=== PATIENT | male | born 1985 | race Caucasian/White ===

== ENCOUNTER 2023-03-13 14:34 | Outpatient (CLI) | payer OTHER, SELFPAY | END 2023-03-13 14:35 | disposition home or self-care (01) | PROVIDERS: PCP Family Medicine; Visit Provider Family Medicine | DX: Z00.00 Encounter for general adult medical examination without abnormal findings (principal); I10 Essential (primary) hypertension; M10.9 Gout, unspecified | CPT/HCPCS: 80048; 80061; 84550 ==

== ENCOUNTER 2023-09-11 16:54 | Outpatient (CLI) | payer OTHER, SELFPAY | END 2023-09-11 16:55 | disposition home or self-care (01) | LOC: FBOREF 16:57 | PROVIDERS: PCP Family Medicine; Visit Provider Family Medicine | DX: I10 Essential (primary) hypertension (principal) | CPT/HCPCS: 80048 ==

== ENCOUNTER 2024-10-08 16:17 | Outpatient (CLI) | payer OTHER, SELFPAY | END 2024-10-08 16:18 | disposition home or self-care (01) | PROVIDERS: PCP Family Medicine; Visit Provider Family Medicine | DX: I10 Essential (primary) hypertension (principal); M10.9 Gout, unspecified | CPT/HCPCS: 80048; 80061; 84550 ==